=== PATIENT | female | born 1995 | race Caucasian/White ===

== ENCOUNTER 2017-06-11 09:28 | Emergency (ER) | payer SELFPAY, MEDICAID ==
[2017-06-11] MEDS: diphenhydrAMINE HCL 25 MG CAPSULE PO (10:15)
== END 2017-06-11 10:56 | disposition home or self-care (01) ==
LOC: ER 09:28
DX: L25.9 Unspecified contact dermatitis, unspecified cause (principal); Z91.040 Latex allergy status
CPT/HCPCS: 99283; Q0163